=== PATIENT | female | born 2005 | race Caucasian/White ===

== ENCOUNTER 2023-01-19 14:46 | Emergency (ER) | payer BC, OTHER ==
[~2023-01-19] VITALS: Ht 172.7 cm; Wt 56.7 kg
[2023-01-19 18:03] LABS: BASOPHILS % (AUTO) 0.3 % (0.0-2.0); EOSINOPHILS % (AUTO) 0.3 % (0.0-6.0); HEMATOCRIT 41 % (33-45); HEMOGLOBIN 13.3 g/dL (11.5-14.8); LYMPHOCYTES # (AUTO) 1.2 K/uL (0.8-4.8); LYMPHOCYTES % (AUTO) 11.3 % (20.0-44.0); MEAN CORPUSCULAR HGB CONC 33 g/dl (31.0-36.0); MEAN CORPUSCULAR VOLUME 86 fL (82-100); MONOCYTES # (AUTO) 0.4 K/uL (0.1-1.30); MONOCYTES % (AUTO) 3.9 % (2.0-12.0); NEUTROPHILS # (AUTO) 9.3 K/uL (1.8-8.9); NEUTROPHILS % (AUTO) 84.2 % (43.0-81.0); PLATELET COUNT (AUTO) 256 K/uL (150-450); RED BLOOD CELL COUNT(AUTO) 4.73 MIL/uL (4.0-5.2); WHITE BLOOD COUNT (AUTO) 11.1 K/uL (4.3-11.0)
[2023-01-19 18:21] LABS: CALCIUM, SERUM 9.5 mg/dL (8.5-10.1); CARBON DIOXIDE 27 mmol/L (21-32); CHLORIDE 105 mmol/L (98-107); CREATININE 0.7 mg/dL (0.6-1.3); GLUCOSE 87 mg/dL (74-106); POTASSIUM 3.9 mmol/L (3.5-5.1); SODIUM SERUM 140 mmol/L (136-145); UREA NITROGEN, BLOOD 6 mg/dL (7-18)
[2023-01-19] MEDS ORDERED: IV NS 0.9% 250 ML IV ONE (19:53)
[2023-01-19] MEDS ORDERED: IOHEXOL-350 100 ML VIAL IV ONE (19:53)
--- NOTE | 2023-01-19 20:00 | NUR ---
18GA TO LEFT AC ESTABLISHED
--- NOTE | 2023-01-19 20:56 | NUR ---
Patient discharged to home in stable condition. Written and verbal after care instructions given. Patient verbalizes understanding of instruction.
[2023-01-19 20:57] VITALS: BP 131/60
== END 2023-01-19 21:56 | disposition home or self-care (01) ==
LOC: ER 14:58
DX: R07.9 Chest pain, unspecified (principal); R06.4 Hyperventilation; R10.9 Unspecified abdominal pain
CPT/HCPCS: 99285; 71275; 71045; 93005; 74176; 85025; 80048; 85378; 36415; 84484; J7050; Q9967